=== PATIENT | male | born 1940 | race Caucasian/White ===

== ENCOUNTER 2016-07-29 09:02 | Emergency (ER) | payer OTHER ==
[~2016-07-29] VITALS: Ht 170.2 cm; Wt 64.9 kg
[2016-07-29 09:05] VITALS: BP 170/90
--- NOTE | 2016-07-29 09:10 | ED GENERAL ADULT ---
History of Present Illness General Chief Complaint: General Adult Stated Complaint: PER PT ANXIOUS, STOPPED TAKING LORAZEPAM Source: patient, family Exam Limitations: no limitations Vital Signs & Intake/Output Vital Signs & Intake/Output Vital Signs Date Time Temp Pulse Resp B/P Pulse O2 O2 Flow FiO2 Ox Delivery Rate 07/29 0905 97.7 64 16 170/90 96 Room Air Allergies Coded Allergies: NO KNOWN ALLERGIES (UNKNOWN 07/29/16) Reconcile Medications Amlodipine Besylate 5 MG TABLET 1 TAB PO DAILY HEART (Reported) Lorazepam (Ativan) 1 MG TABLET 1 TAB PO 4 TIMES/DAY ANXIETY Metoprolol Succinate 50 MG TAB.ER.24H 1 TAB PO QPM HEART (Reported) Rosuvastatin Calcium (Crestor) 20 MG TABLET 0.5 TAB PO DAILY CHOLESTEROL ( Reported) Triage Note: 76 Y/O MALE C/O "FEELING BURNING ALL OVER"; STATES HE HAS BEEN TAKING ATIVAN BUT WAS NOT ABLE TO REFILL IT DUE TO "MY DOCTOR MADE A MISTAKE". PT HAS NOT TAKEN ATIVAN IN 3-4 DAYS, "I THINK I FEEL THIS WAY BECAUSE I AM NOT ON THE MEDICINE". PT DENIES ANY OTHER COMPLAINTS. DENIES C/P. DENIES SOB. Triage Nurses Notes Reviewed? yes Onset: Abrupt Duration: day(s): (2) Timing: multiple episodes today Injury Environment: home Severity: mild, moderate Modifying Factors: Worsens With: other (ran out of ativan). Associated Symptoms: FEELS ANXIOUS, TWITCHY HPI: 76 year old male presents feeling anxious and shaky for the past 2 days. He ran out of his prescription of lorazepam because hiws doctor did not write for refills like he normally does. He has been taking Lorazepam for approximately 30 years, current prescription is 1 mg PO four times a day. Last dose was yesterday. He does not abuse his medication. No chest pain or shortness of breath. No depression, SI or HI. He states that his doctor's office will be opening soon and he will go there to sort out the prescription refill. NO SEIZURES. Past History Travel History Traveled to [place] past 21 day No Medical History Any Pertinent Medical History? see below for history Neurological: NONE EENT: NONE Cardiovascular: hypertension, hyperlipidemia Respiratory: NONE Gastrointestinal: NONE Hepatic: NONE Renal: NONE Musculoskeletal: NONE Psychiatric: anxiety Endocrine: NONE Blood Disorders: NONE Cancer(s): NONE SECURITY MESSENGER/Reproductive: NONE Surgical History Surgical History: non-contributory Psychosocial History What is your primary language Yi Tobacco Use: Never used Family History Hx Contributory? No Review of Systems Review of Systems Constitutional: Denies: chills, fever. EENTM: Reports: no symptoms. Respiratory: Denies: cough, short of breath, sputum production. Cardiovascular: Denies: chest pain, palpitations, peripheral edema. GI: Denies: abdominal pain, nausea, vomiting. Genitourinary: Reports: no symptoms. Musculoskeletal: Reports: no symptoms. Skin: Reports: no symptoms. Neurological/Psychological: Reports: anxiety, tremors. Hematologic/Endocrine: Denies: bruising, bleeding, polyuria, polydipsia. Immunologic/Allergic: Denies: splenectomy. All Other Systems: Reviewed and Negative Physical Exam Physical Exam General Appearance: well developed/nourished, alert, awake Head: atraumatic, normal appearance Eyes: Bilateral: normal appearance, PERRL, EOMI. Ears, Nose, Throat: normal pharynx, normal ENT inspection, hearing grossly normal Neck: normal inspection, supple, full range of motion Respiratory: normal breath sounds, chest non-tender, no respiratory distress Cardiovascular: regular rate/rhythm Peripheral Pulses: 2+ radial (R), 2+ radial (L) Back: normal inspection, normal range of motion Extremities: normal inspection, normal capillary refill, normal range of motion, no edema Neurologic/Psych: no motor/sensory deficits, awake, alert, oriented x 3, normal gait Skin: intact, normal color, warm/dry Core Measures ACS in differential dx? No CVA/TIA Diagnosis: No Severe Sepsis Present: No Septic Shock Present: No Progress Differential Diagnoses I considered the following diagnoses in my evaluation of the patient: [ benzodiazepine dependence, benzodiazepine withdrawal] Plan of Care: Current Medications Sig/Kirit Start time Last Medication Dose Stop Time Status Admin Lorazepam 1 MG ONE ONE 07/29 929 UNVr (Ativan) 07/29 930 ativan 1 mg ordered. rx sent to pharmacy for 12 pills. (NANCY FRANCE,GIOVANNI) Initial ED EKG: none Departure Departure Time of Disposition: 919 Disposition: HOME OR SELF CARE Condition: Stable Clinical Impression Primary Impression: Benzodiazepine withdrawal without complication Referrals: NICHOLE FRANCE,PAOLA Monet Additional Instructions: Call your doctor today for your prescription refill. Please discuss your doctor possibly tapering off the medication slowly. Return to ER as needed. Departure Forms: Customer Survey General Discharge Information Prescriptions: Current Visit Scripts Lorazepam (Ativan) 1 TAB PO 4 TIMES/DAY #12 TAB Critical Care Note Critical Care Note Critical Care Time: non-applicable
[2016-07-29] MEDS ORDERED: ATIVAN1 M1 PO (09:20)
[2016-07-29] MEDS ORDERED: AMLODIPINE BESYL5 M1 PO (09:24)
[2016-07-29] MEDS ORDERED: METOPROLOL SUCC50 M2 PO (09:25)
[2016-07-29] MEDS ORDERED: LORAZEPAM1 M1 PO (09:25)
[2016-07-29] MEDS ORDERED: CRESTOR20 M2 PO (09:26)
== END 2016-07-29 09:31 ==
LOC: ERH 09:02
DX: F13.239 Sedative, hypnotic or anxiolytic dependence with withdrawal, unspecified (principal)

== ENCOUNTER 2016-08-05 08:32 | Emergency (ER) | payer OTHER ==
[~2016-08-05] VITALS: Ht 170.2 cm; Wt 65.8 kg
[~2016-08-05 08:32] MED LIST: AMLODIPINE BESYL5 M1 PO; ATIVAN1 M1 PO; CRESTOR20 M2 PO; LORAZEPAM1 M1 PO; METOPROLOL SUCC50 M2 PO
[2016-08-05 08:34] VITALS: BP 174/88
--- NOTE | 2016-08-05 08:41 | ED NECK/BACK PAIN COMPLAINT ---
History of Present Illness General Chief Complaint: Neck/Upper Back Pain/Injury Stated Complaint: NECK PAIN, NAUSEA Source: patient, family Exam Limitations: no limitations Vital Signs & Intake/Output Vital Signs & Intake/Output Vital Signs Date Time Temp Pulse Resp B/P Pulse O2 O2 Flow FiO2 Ox Delivery Rate 08/05 0834 98.3 77 18 174/88 98 Room Air Allergies Coded Allergies: NO KNOWN ALLERGIES (UNKNOWN 07/29/16) Reconcile Medications Amlodipine Besylate 5 MG TABLET 1 TAB PO DAILY HEART (Reported) Cyclobenzaprine HCl 10 MG TABLET 1 TAB PO QPM PRN MUSCLE RELAXOR Lorazepam (Ativan) 1 MG TABLET 1 TAB PO 4 TIMES/DAY ANXIETY Metoprolol Succinate 50 MG TAB.ER.24H 1 TAB PO QPM HEART (Reported) Naproxen 375 MG TABLET 1 TAB PO BID PRN PAIN with food Rosuvastatin Calcium (Crestor) 20 MG TABLET 0.5 TAB PO DAILY CHOLESTEROL ( Reported) Triage Note: PT STATES THAT 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 Triage Nurses Notes Reviewed? yes Onset: Gradual Duration: constant Timing: recent history Quality/Severity: severe, sharpness Location: paraspinous muscles Radiation: none HPI: Patient is a 76-year-old male with a past medical history of hypertension hyperlipidemia and anxiety since emergency room with daughter stating that approximately one week ago while lifting heavy objects later on that evening he had a gradual onset of left-sided lateral muscular neck pain. Patient states that she he has been taking Tylenol with mild improvement of symptoms however yesterday he states that he was lifting heavy objects again where his pain worsens to left lateral aspect of his neck and now is in the right lateral aspect of his neck. Patient denies any acute onset of pain denies any shortness of breath arm pain jaw pain chest pain extremity paresthesia or weakness or numbness. (EMILY INFANTE,MEHRDAD) Past History Travel History Traveled to [place] past 21 day No Medical History Any Pertinent Medical History? see below for history Neurological: NONE EENT: NONE Cardiovascular: hypertension, hyperlipidemia Respiratory: NONE Gastrointestinal: NONE Hepatic: NONE Renal: NONE Musculoskeletal: NONE Psychiatric: anxiety Endocrine: NONE Blood Disorders: NONE Cancer(s): NONE CURRICULUM AND ASSESSMENT COORDINATOR/Reproductive: NONE Surgical History Surgical History: non-contributory Psychosocial History What is your primary language Citizen Of [place] Tobacco Use: Never used ETOH Use: denies use Illicit Drug Use: denies illicit drug use Family History Hx Contributory? No (MEHRDAD ZHAO) Review of Systems Review of Systems Constitutional: Reports: no symptoms. Eyes: Reports: no symptoms. Ears, Nose, Throat, Mouth: Reports: no symptoms. Respiratory: Reports: no symptoms. Cardiovascular: Reports: no symptoms. Gastrointestinal/Abdominal: Reports: no symptoms. Musculoskeletal: Reports: see HPI, muscle pain, muscle stiffness, neck pain. Skin: Reports: no symptoms. Neurological/Psychological: Reports: no symptoms. All Other Systems: Reviewed and Negative (MEHRDAD ZHAO) Physical Exam Physical Exam General Appearance: no apparent distress, alert, comfortable Head: atraumatic Neck: normal inspection, supple, limited range of motion, paraspinous muscle tender, stiff neck, tender lateral, no midline tenderness Comments: HEENT: Normal EENT exam, Back: Nontender, no CVA tenderness. Cardiovascular: Regular rate and rhythms no murmurs rubs or gallops, normal JVP Respiratory: Chest nontender. No respiratory distress.breath sounds clear to auscultation bilaterally Extremity: No edema, no calf tenderness to palpation, normal and equal pulses. Bilateral upper extremity myotomes dermatomes DTRs intact Neuro: Alert oriented x3, motor sensory normal, Skin: No appreciable rash on exposed skin, skin is warm and dry. Psych: Mood and affect is normal, memory and judgment is normal. (MEHRDAD ZHAO) Progress Differential Diagnosis: AAA, aortic dissection, C spine injury, carotid dissection, cauda equina syn, herniated disc, myofascial strain, pyelo/UTI, sciatica, spinal cord inj, thoracic outlet syn, T/L spine injury, ureterolithiasis, CERVICAL STRAIN Plan of Care: Patient currently looks well no apparent distress nontoxic-appearing no central spinous tenderness Patient has reproducible pain upon lateral palpation bilateral upper extremity neurovascular was intact NEXUS 0 Discussed disposition AND plan with Dr. CRUZ who agrees (MEHRDAD ZHAO) Departure Departure Disposition: HOME OR SELF CARE Condition: Stable Clinical Impression Primary Impression: Neck strain Referrals: KAYLENE MEDEL MD (PCP/Family) Additional Instructions: DISCUSSED BEGIN ICING THE AREA 20 MINUTES EVERY TWO HOURS FOR PAIN BEGIN THE PRESCRIPTION OF NAPROSYN FOR PAIN AND INFLAMMATION BEGIN THE PRESCRIPTION OF CYCLOBENZAPRINE FOR MUSCLE RELAXATION AT NIGHT PRESCRIPTIONS ARE WAITING AT [facility] IF SYMPTOMS WORSEN, RETURN TO THE ER IF NO BETTER ON MONDAY, FOLLOW UP WITH YOUR DOCTOR Departure Forms: Customer Survey General Discharge Information Prescriptions: Current Visit Scripts Naproxen 1 TAB PO BID PRN PAIN #20 TAB with food Cyclobenzaprine HCl 1 TAB PO QPM PRN MUSCLE RELAXOR #7 TAB (EMILY INFANTE,MEHRDAD) PA/ACRYLIC FABRICATOR Co-Sign Statement Statement: ED Attending supervision documentation- [X] I saw and evaluated the patient. I have also reviewed all the pertinent lab results and diagnostic results. I agree with the findings and the plan of care as documented in the PA's/ACRYLIC FABRICATOR's documentation. [X] I have reviewed the ED Record and agree with the PA's/ACRYLIC FABRICATOR's documentation. [] Additions or exceptions (if any) to the PAs/ACRYLIC FABRICATOR's note and plan are summarized below: [] (NANCY FRANCE,GIOVANNI)
[2016-08-05] MEDS ORDERED: CYCLOBENZAPRINE10 M1 PO (08:53)
[2016-08-05] MEDS ORDERED: NAPROXEN375 M2 PO (08:53)
== END 2016-08-05 09:17 ==
LOC: ERH 08:32
DX: S16.1XXA Strain of muscle, fascia and tendon at neck level, initial encounter (principal); X50.0XXA Overexertion from strenuous movement or load, initial encounter; Y93.89 Activity, other specified; Y92.9 Unspecified place or not applicable